=== PATIENT | male | born 2000 | race Caucasian/White ===

== ENCOUNTER → 2021-10-23 | Outpatient (CLI) | payer OTHER | LOC: M CARPUL 15:08 | PROVIDERS: ATTEND Physician Assistant | DX: R06.02 Shortness of breath (principal) ==

== ENCOUNTER → 2021-11-06 | Outpatient (CLI) | payer OTHER ==
[~2021-11-06] MED LIST: METHACHOLINE KIT (J7674) INH ONE
== END ==
LOC: M CARPUL 07:31
PROVIDERS: ATTEND Physician Assistant
DX: R06.02 Shortness of breath (principal)
CPT/HCPCS: 94070; J7674